=== PATIENT | male | born 1975 | race Caucasian/White ===

== ENCOUNTER 2017-02-20 07:09 | Emergency (ER) | payer BC ==
[~2017-02-20] VITALS: Ht 170.2 cm; Wt 72.6 kg
== END 2017-02-20 08:10 | disposition short-term general hospital (02) ==
LOC: ER 07:09
DX: M79.641 Pain in right hand (principal); M79.642 Pain in left hand; Z79.899 Other long term (current) drug therapy; Z98.890 Other specified postprocedural states

== ENCOUNTER → 2017-02-26 | Outpatient (CLI) | payer BC | END | disposition short-term general hospital (02) | LOC: CLCARD 10:46 | DX: R06.02 Shortness of breath (principal); R53.83 Other fatigue ==

== ENCOUNTER → 2017-03-19 | Outpatient (CLI) | payer BC | END | disposition short-term general hospital (02) | LOC: CLCARD 09:54 | DX: R53.83 Other fatigue (principal) ==